=== PATIENT | male | born 1990 | race Hispanic/Latino ===

== ENCOUNTER 2024-01-05 17:12 | Emergency (ER) | payer BC ==
[~2024-01-05] VITALS: Ht 180.3 cm; Wt 157.4 kg
[2024-01-05 18:28] LABS: BASOPHILS # (AUTO) 0.07 K/uL (0.00-0.20); BASOPHILS % (AUTO) 0.6 % (0.0-5.0); EOSINOPHILS # (AUTO) 0.21 K/uL (0.00-0.70); EOSINOPHILS % (AUTO) 1.9 % (0.0-8.0); HEMATOCRIT 42.1 % (42-54); IMMATURE GRANULOCYTE ABSOLUTE 0.09 K/uL (0-1); LYMPHOCYTES # (AUTO) 2.4 K/uL (1.0-4.8); LYMPHOCYTES % (AUTO) 20.9 % (21.0-51.0); MEAN CORPUSCULAR HEMOGLOBIN 27.7 pg (27.0-33.0); MEAN CORPUSCULAR HGB CONC 32.8 g/dL (32.0-36.0); MEAN CORPUSCULAR VOLUME 84.5 fL (79-99); MONOCYTES % (AUTO) 8.8 % (3.0-13.0); NEUTROPHILS # (AUTO) 7.5 K/uL (1.8-7.7); PLATELET COUNT (AUTO) 344 K/uL (130-400); RED BLOOD CELL COUNT(AUTO) 4.98 MIL/uL (4.50-6.20); WHITE BLOOD COUNT (AUTO) 11.2 K/uL (4.8-10.8)
[2024-01-05 18:42] LABS: CREATININE 0.9 mg/dL (0.5-1.5); POTASSIUM 3.9 mmol/L (3.5-5.1)
[2024-01-05 19:09] LABS: APPEARANCE,URINE CLEAR (CLEAR); BILIRUBIN,URINE NEGATIVE (NEGATIVE); COLOR,URINE LIGHT-YELLOW (YELLOW); GLUCOSE, URINE (UA) NEGATIVE (NEGATIVE); KETONES,URINE NEGATIVE (NEGATIVE); LEUKOCYTE ESTERASE ,URINE NEGATIVE Leu/uL (NEGATIVE); NITRATE,URINE NEGATIVE (NEGATIVE); OCCULT BLOOD,URINE NEGATIVE (NEGATIVE); PROTEIN,URINE 10 mg/dL (NEGATIVE); UROBILINOGEN,URINE 0.2 mg/dL (0.2-1.0)
[2024-01-05 19:11] LABS: ADD UA MICROSCOPIC YES
[2024-01-05 19:12] LABS: MUCUS,URINE RARE LPF (None Seen); WBC,URINE 0-1 /HPF (0-1)
[2024-01-05 21:43] VITALS: BP 148/74; PULSE 72; RESP 18; O2SAT 98
== END 2024-01-05 21:49 | disposition home or self-care (01) ==
LOC: EDH 17:12
DX: M79.89 Other specified soft tissue disorders (principal); E78.00 Pure hypercholesterolemia, unspecified
CPT/HCPCS: 36415; 80048; 81001; 85025; 93971

== ENCOUNTER 2025-05-01 00:49 | Emergency (ER) | payer BC ==
[~2025-05-01] VITALS: Ht 177.8 cm; Wt 163.3 kg
--- NOTE | 2025-05-01 01:59 | ERN ---
General Chief Complaint: Arm Swelling/Redness Stated Complaint: RT ELBOW PAIN Time Seen by MD: 01:04 Source: patient History of Present Illness Initial Comments Patient is a 35-year-old male who stepped out of the shower today and noticed some swelling in his right elbow at the insert of the triceps. He also noted increased pain flexing his elbow. Timing/Duration: 1-3 hours Allergies: Coded Allergies: Penicillins (Unverified Allergy, Unknown, 01/05/24) Past Medical History Past Medical History: High Cholesterol, Hypertension, Other Medical History Other: NON COMPLIANT Past Surgical History: None Family History Family History: Negative Social History Social History: Negative, Lives with family ROS Dictation Review of systems is otherwise negative. Physical Exam Extremities Comment Patient does indeed have some swelling just above his right elbow posterior humerus. And he does have pain and tenderness in that area whenever he moves his arm. Distal sensation and circulation is intact. Results Laboratory and Microbiology Lab and Micro Result Laboratory Tests Test 05/01/25 01:13 Sodium Level 138 mmol/L (136-145) Potassium Level 3.7 mmol/L (3.5-5.1) Chloride Level 105 mmol/L (101-111) Carbon Dioxide Level 25 mmol/L (21-32) Blood Urea Nitrogen 15 mg/dL (7-18) Creatinine 1.0 mg/dL (0.5-1.3) Glomerular Filtration Rate Calc 102 mL/min (>90) Random Glucose 162 mg/dL (70-105) H Total Calcium 8.5 mg/dL (8.5-10.1) MDM I really do not know what could be causing the patient's pain, it could be bursitis, it could be tendinitis, it could be a torn muscle, it could be some odd fracture. I have ordered a CT with and without contrast of his right upper extremity. Given the patient's large body habitus it was extremely difficult to get a CT scan that was adequate to interpret however one of the slice series seemed to show a hairline fracture of the olecranon process. I have placed the patient's arm in a sling and ordered plain films. Patient needs to follow up with his primary care physician and an orthopedic surgeon. ED Course Orders Procedure Category Date Status Time Basic Metabolic Panel LAB 05/01/25 Complete 01:44 Ct Upper Ext W/Wo CT 05/01/25 Taken Contrast 01:44 Iohexol (Omnipaque) PHA 05/01/25 Complete 02:24 Elbow Comp 3+Vws Rt RAD 05/01/25 Taken 03:44 Current Medications Medications (Trade) Dose Ordered Sig/Lisa Route PRN Reason Start Time Stop Time Status Last Admin Dose Admin Iohexol (Omnipaque) 75 ml STK-MED ONCE IV 05/01/25 02:24 05/01/25 02:24 DC Vital Signs Date Time Temp Pulse Resp B/P (MAP) Pulse Ox O2 Delivery O2 Flow Rate FiO2 05/01/25 04:10 98.2 70 16 135/70 98 Room Air* 0 21 05/01/25 03:12 98.4 77 16 147/80 98 Room Air* 0 05/01/25 02:15 98.2 71 17 155/82 98 Room Air* 0 05/01/25 01:00 99.0 74 18 174/88 98 Room Air* 0 05/01/25 00:52 97.9 90 20 184/100 99 Room Air DX & DISP Disposition: Discharge Departure Impression: Primary Impression: Olecranon fracture Condition: Stable Referrals: EDWIN JOHNSON MD (PCP) Please see your family practice doctor or an orthopedic doctor for follow-up for this possible hairline fracture of your elbow. Best way to treat the pain would be with Motrin or Tylenol. Please come back to the emergency room if you find you can not move your arm at all secondary to the pain or if the joint locks up on you. Or if you lose sensation and circulation to your hand CICI CAPONE MD May 01, 2025 01:59
[2025-05-01 02:14] LABS: POTASSIUM 3.7 mmol/L (3.5-5.1)
[2025-05-01] MEDS ORDERED: IOHEXOL-350 75 ML VIAL IV ONE (02:24)
[2025-05-01] MEDS: ketOROlac 30MG VIAL (30MG/ML) IVP ONE (04:45)
[2025-05-01 04:56] VITALS: BP 141/72; PULSE 74; RESP 17; TEMP 98.2; O2SAT 98
--- NOTE | 2025-05-01 11:00 | HMCIMG ---
CT UPPER EXT W/WO CONTRAST REASON: elbow swelling and pain COMPARISON: None TECHNIQUE: Axial images are obtained from distal humerus to the proximal radius and ulna with bone and soft tissue window presentation. Sagittal and coronal reconstruction images were then performed. FINDINGS: There is a faint lucency in the base of the coronoid process which could represent a nondisplaced fracture. This finding is equivocal. Distal humerus appears unremarkable as does the proximal ulna. MRI scan may be helpful for further evaluation, if appropriate symptoms persist. IMPRESSION: 1. Equivocal lucency through the base of the coronoid process causing difficulty in excluding a nondisplaced fracture. 2. MRI may be helpful for further evaluation to evaluate presence or absence of osseous marrow edema, as well as to reevaluate herniated ligament or tendon damage.
--- NOTE | 2025-05-01 11:15 | HMCIMG ---
ELBOW COMP 3+VWS RT REASON: Pain on movement TECHNIQUE: 3 views were obtained. FINDINGS: There are normal-appearing bones. There are no visible fractures. There is positive anterior and posterior fat-pad sign, indicating a joint effusion. This can be due to inflammation, but can also be evidence of an occult nonvisualized fracture. Soft tissues appear otherwise unremarkable. IMPRESSION: 1. No fracture identified. 2. Positive joint effusion, this can be inflammation, but this can also represent an occult nonvisualized fracture
== END 2025-05-01 05:04 | disposition home or self-care (01) ==
LOC: EDH 00:49
DX: S52.021A Displaced fracture of olecranon process without intraarticular extension of right ulna, initial encounter for closed fracture (principal); E78.00 Pure hypercholesterolemia, unspecified; I10 Essential (primary) hypertension; Z88.0 Allergy status to penicillin; W18.39XA Other fall on same level, initial encounter; Y93.E1 Activity, personal bathing and showering; Y92.89 Other specified places as the place of occurrence of the external cause; Y99.8 Other external cause status
CPT/HCPCS: 99284; 96374; 73202; 80048; 36415; 73080; J1885; Q9967; 29105